=== PATIENT | female | born 1955 | race Caucasian/White ===

== ENCOUNTER 2019-12-28 14:43 | Outpatient (CLI) | payer OTHER, MEDICARE ==
--- NOTE | 2020-01-01 11:45 | CT Report ---
Reason: NICOTINE DEPENDENCE Procedure Date: 12/28/2019 Accession Number: [id number] / [id number] Procedure: CT - Low Dose Lung Cancer Screen CPT Code: Final Report FULL RESULT: EXAM CT LUNG SCREEN EXAM DATE: 12/28/2019 03:04 PM. HISTORY: 64-year-old patient with [id number] smoking history. Currently smoking: No. Years since quitting 5 years. COMPARISON: Chest x-ray from 06/28/2007. TECHNIQUE: CT examination of the entire thorax without contrast was performed using low-dose technique. Thin section coronal, axial, sagittal and MIP axial images were obtained. In accordance with CT protocol optimization, one or more of the following dose reduction techniques were utilized for this exam: automated exposure control, adjustment of mA and/or KV based on patient size, or use of iterative reconstructive technique. FINDINGS: Nodules: Right upper lobe: None. Right middle lobe: None. Right lower lobe: 2 mm, image 65, series 4. Left upper lobe: None. Left lower lobe: 2 mm, image 94, series 4. Emphysema: No significant emphysematous changes. Pleura: No pleural effusions. No pneumothorax.. Aorta: Calcified plaque seen in the distal aortic arch/proximal descending thoracic aorta. Descending thoracic aorta is tortuous. Mediastinum: Visualized thyroid gland appears heterogeneous on these unenhanced images. No enlarged mediastinal lymph nodes. Heart size is normal. Trace pericardial effusion. Small hiatal hernia. Coronary calcifications: Moderate coronary artery calcified plaque. Other pulmonary findings: Prominent linear bilateral mid and lower lung opacities likely due to scar/atelectasis. Calcified granuloma present in the inferior lateral right upper lobe. No endobronchial obstruction. Other extrapulmonary findings: Calcification seen in the left renal parenchyma. Abdominal aortic atherosclerosis. Otherwise included portions of the upper abdomen are unremarkable. Degenerative changes of the thoracic and lumbar spine. Thoracic/upper lumbar dextroscoliosis. IMPRESSION: Lung-RADS ASSESSMENT CATEGORY: 2 - benign appearance or behavior. Probability of malignancy: Less than 1%. RECOMMENDATION: Recommended follow up based on ACR Lung-RADS Version 1.1 Guidelines. Follow-up low-dose chest CT recommended in 12 months. RADIA
== END 2019-12-28 14:44 | disposition home or self-care (01) ==
LOC: DI 14:43
PROVIDERS: ATTEND Family Medicine
DX: Z12.2 Encounter for screening for malignant neoplasm of respiratory organs (principal); Z87.891 Personal history of nicotine dependence

== ENCOUNTER 2023-09-07 10:20 | Outpatient (CLI) | payer MEDICARE, OTHER ==
--- NOTE | 2023-09-07 12:35 | CT Report ---
PROCEDURE: Low Dose Lung Cancer Screen INDICATIONS: SMOKER TECHNIQUE: A CT scan of the chest was performed. Intravenous contrast media was not administered. Images were re corded and evaluated at appropriate window settings. Reformats: axial MIP of the chest, coronal and s agittal. For radiation dose reduction, the following was used: automated exposure control, adjustment of mA and/or kV according to patient size. COMPARISON: None. FINDINGS: Image quality: Excellent. Prior cancer history: None Lungs and pleura: No pleural effusions. No pneumothorax. No suspicious pulmonary nodules which requi re follow up. There is a small calcified granulomas involving the patient's right midlung laterally. There are some patchy areas of the scarring are present involving the right middle lobe and left ling frances. Mediastinum: Heart size is normal. No pericardial effusion. No large vessel abnormality. No mediastin al adenopathy by size criteria. There are some coronary artery and atherosclerotic vascular calcific ations. 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 No axil marsha or supraclavicular adenopathy by size. Bones: No aggressive osseous abnormality. Upper Abdomen: There are bilateral large fat-containing adrenal adenomas the right measuring 6.8 cm i n maximal dimension the left measuring 3.7 cm in maximal dimension. There are postsurgical changes in volving the lumbar spine. There are some cystic structures involving the patient's left kidney some o f which are hyperdense in nature and indeterminant given the imaging findings I would recommend a luis al ultrasound to evaluate for any solid lesion. IMPRESSION: Lung RAD: 1 - Negative. Recommendation: Continue annual screening in 12 Months with LDCT Non-Lung Significant Findings 1. Left-sided renal cysts with a 1 cm indeterminate lesion which is hyperdense. Given the imaging fin dings I recommend renal ultrasound to evaluate for cystic versus solid. 2. 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 3. Bilateral fat-containing adrenal adenomas. 4. Areas of scarring in the right middle lobe and left lingula. 5. Calcified granuloma right mid lung laterally. 6. Coronary artery and atherosclerotic vascular calcification. 7. Prior postsurgical changes lumbar spine. 8. [id number] age-indeterminate wedge compression fracture upper thoracic spine. Reviewed by: Abdon Zapata MD on 09/07/2023 12:33 PM PST Approved by: Abdon Zapata MD on 09/07/2023 12:33 PM [facility] Station ID: [id number]
== END 2023-09-07 10:21 | disposition home or self-care (01) ==
LOC: DI 10:20
PROVIDERS: ATTEND Student in an Organized Health Care Education/Training Program
DX: Z12.2 Encounter for screening for malignant neoplasm of respiratory organs (principal); F17.210 Nicotine dependence, cigarettes, uncomplicated

== ENCOUNTER 2024-01-18 11:00 | Outpatient (CLI) | payer MEDICARE, OTHER | END 2024-01-18 23:59 | disposition short-term general hospital (02) | LOC: EMS 11:00 | DX: R50.9 Fever, unspecified (principal); R11.0 Nausea; R10.9 Unspecified abdominal pain | CPT/HCPCS: A0425; A0427 ==